=== PATIENT | male | born 2000 | race Caucasian/White ===

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

== ENCOUNTER 2020-07-01 07:54 | Observation (INO) | payer OTHER, MEDICAID ==
[~2020-07-01] VITALS: Ht 182.9 cm; Wt 70.8 kg
[~2020-07-01 07:54] MED LIST changes: +BUSPIRONE HCL10 MG PO; +DEPAKOTE125 MG PO; +HYDROXYZINE HCL25 M1 PO
[2020-07-01 08:00] VITALS: BP 112/55
[2020-07-01 08:19] LABS: ABSOLUTE LYMPHOCYTES 1.2 thou/uL (0.8-5.3); ABSOLUTE MONOCYTES 0.5 thou/uL (0.0-1.2); ABSOLUTE NEUTROPHILS 1.3 thou/uL (1.6-8.1); BASOPHILS 0.4 %; EOSINOPHILS 1.2 %; HEMATOCRIT 41.3 % (42.0-52.0); HEMOGLOBIN 13.8 gm/dL (14.0-18.0); LYMPHOCYTES 40.7 %; MCH 28.9 pg (26.0-34.0); MCHC 33.3 g/dL (28.0-37.0); MCV 86.7 fL (80.0-100.0); MONOCYTES 14.8 %; NUCLEATED RBCS 0 /100WBC; PLATELET COUNT* 156 thou/uL (150-400); POLYS 42.9 %; RBC 4.77 mil/uL (4.50-6.00); RDW-CV 13.5 % (10.5-14.5)
[2020-07-01 08:27] LABS: CALCIUM 8.8 mg/dL (8.5-10.1); CREATININE 0.6 mg/dL (0.6-1.3); POTASSIUM 3.4 mmol/L (3.5-5.1)
[2020-07-01 08:30] LABS: APTT 22.5 Seconds (25.0-31.3); INR 1.1; PROTIME 11.6 Seconds (9.20-11.50)
[2020-07-01 08:38] LABS: ALBUMIN 3.9 g/dL (3.4-5.0); TOTAL BILIRUBIN 0.5 mg/dL (<0.1-1.0); TOTAL PROTEIN 6.7 g/dL (6.4-8.2)
[2020-07-01] MEDS ORDERED: STRATTERA18 MG PO (09:08)
[2020-07-01] MEDS ORDERED: STRATTERA25 MG PO (09:08)
[2020-07-01] MEDS ORDERED: DEXEDRINE10 MG PO (09:09)
[2020-07-01] MEDS ORDERED: LOXAPINE5 MG PO (09:12)
[2020-07-01] MEDS ORDERED: TRAZODONE HCL50 MG PO (09:12)
[2020-07-01 09:34] LABS: URINE BILIRUBIN NEGATIVE (Negative); URINE BLOOD TRACE (Negative); URINE CLARITY CLEAR; URINE COLOR YELLOW; URINE GLUCOSE-RANDOM NEGATIVE (Negative); URINE KETONES NEGATIVE (Negative); URINE LEUKOCYTES-REFLEX NEGATIVE (Negative); URINE NITRITE-REFLEX NEGATIVE (Negative); URINE PROTEIN 1+ (Negative); URINE SPECIFIC GRAVITY >= 1.030 (1.005-1.030); URINE UROBILINOGEN 0.2 E.U./dl (0.2-1.0)
[2020-07-01 10:36] LABS: AMP/METHAMP POSITIVE (Negative); BARBITURATES Negative (Negative); BENZODIAZEPINES Negative (Negative); COCAINE Negative (Negative); METHADONE Negative (Negative); OPIATES Negative (Negative); PCP Negative (Negative); THC Negative (Negative)
--- NOTE | 2020-07-01 11:17 | 2DMMODE ---
[place] [address] 2 D/M-MODE ECHOCARDIOGRAM Name: DONALDO STONE [facility] [id number] Admission: 07/01/20 Attend Phys: Vega Bagley, Discharge: Date of : 00 Date of Service: 07/01/20 1116 Report #: [id number] THIS REPORT FOR: cc: GERONIMO DUMONT,GERONIMO Vences,Alex Hunter MD [facility] ~ APPROVED REPORT Study performed: 07/01/2020 10:29:44 EXAM: Comprehensive 2D, Doppler, and color-flow Echocardiogram Patient Location: In-Patient Room #: er Status: routine BSA: 1.73 HR: 108 bpm BP: 127/77 mmHg Other Information Technically limited study due to uncooperative patient. Indications AMS Left Ventricle The left ventricle is normal size. There is normal LV segmental wall motion. There is normal left ventricular wall thickness. Left ventricular systolic function is normal. The left ventricular ejection fraction is within the normal range. LVEF is 65-70%. Right Ventricle The right ventricle is normal size. The right ventricular systolic function is normal. Atria The left atrium size is normal. The interatrial septum is intact with no evidence for an atrial septal defect. The right atrium size is normal. Aortic Valve The aortic valve is normal in structure. No aortic regurgitation is present. There is no [place] [address] 2 D/M-MODE ECHOCARDIOGRAM Name: DONALDO STONE Room: [address] Favian#: [id number] Admission: 07/01/20 Attend Phys: Vega Bagley, Discharge: Date of : 00 Date of Service: 07/01/20 1116 Report #: [id number] Mitral Valve The mitral valve is normal in structure. There is no mitral valve regurgitation noted. No evidence of mitral valve stenosis. Tricuspid Valve The tricuspid valve is normal in structure. There is no tricuspid valve regurgitation noted. Pulmonic Valve The pulmonary valve is normal in structure. There is no pulmonic valvular regurgitation. Great Vessels The aortic root is normal in size. IVC is normal in size and collapses >50% with inspiration. Pericardium There is no pericardial effusion. <Conclusion> The left ventricle is normal size. There is normal left ventricular wall thickness. Left ventricular systolic function is normal. The left ventricular ejection fraction is within the normal range. LVEF is 65-70%. The right ventricle is normal size. The left atrium size is normal. The aortic valve is normal in structure. The mitral valve is normal in structure. The tricuspid valve is normal in structure. IVC is normal in size and collapses >50% with inspiration. There is no pericardial effusion. There is normal LV segmental wall motion. The interatrial septum is intact with no evidence for an atrial septal defect. <ELECTRONICALLY SIGNED> By: Alex Vences MD, FACC 07/01/20 1116 111 111 Alex Vences MD, FACC /INF
[2020-07-01 12:47] LABS: BE -0.8 mmol/L (-2 to +3); PCO2 40.1 mmHg (35.0-45.0); PO2 102.9 mmHg (75.0-100.0); pH 7.395 (7.340-7.450)
[2020-07-01 13:30] VITALS: BP 118/73
[2020-07-01 16:33] VITALS: BP 111/60
[2020-07-01 17:00] VITALS: BP 126/76
--- NOTE | 2020-07-01 18:19 | NUR ---
PT ADMITTED TO ROOM 230 VIA REPORT BY ALEXUS TUTTLE,PT BROUGHT TO ROOM BY ANCILLARY STAFF ACCOMPANIED BY MUSEUM HOST/HOSTESS.MUSEUM HOST/HOSTESS REPORTS PT HAD BEEN ON THE WAY TO SCHOOL WHEN HE LOST CONCIOUSNESS. PT TAKES MANY PSYCH MEDICATIONS AND LIVES IN PRISON WITH OTHERS. WAS DETERMINED ACCORDING TO DRAW PRESS OPERATOR BY COUNT THAT PT DID NOT TAKE ANY ONE ELSE'S MEDICATION.MUSEUM HOST/HOSTESS REPORTS THAT STAFF IS SUPPOSED TO REPLACE THEM PT DOES REQUIRE CONSTANT OBSERVATION AND IN ED DID BECOME IMPULSIVE AND AGITATED.TOOK 3 PEOPLE TO ACQUIRE LABS PER REPORT.FOUND THAT LONG I ASKED PT TO DO PROCEDURES AND DESCRIBED THEM HE WAS VERY PLEASANT AND COMPLIANT.DRAW PRESS OPERATOR REPORTS CONFUSION ABOUT ADMISSION AND PLAN OF CARE. WILL PAGE PHYSICIAN TO CALL DRAW PRESS OPERATOR FOR FURTHER EDUCATION. MUSEUM HOST/HOSTESS RELIEVED BY STAFF. PT RESTING COMFORTABLE.NOTHING FURTHER.CLWR
[2020-07-01 20:33] VITALS: BP 117/62
[2020-07-02 00:08] VITALS: BP 119/67
[2020-07-02 02:00] VITALS: BP 124/71
[2020-07-02 02:01] VITALS: BP 116/77
[2020-07-02 03:42] VITALS: BP 106/62
--- NOTE | 2020-07-02 05:47 | NUR ---
PT HAS SLEPT WELL OVERNIGHT. MORE DROWSY WHEN AWAKENED AT BEGINNING OF SHIFT,BUT HAS SEEMED MORE ALERT WHEN AWAKENING SHIFT HAS PROGRESSED. AO X4, DENIES PAIN. UP WITH SBA AND GB TO BATHROOM TO VOID OVERNIGHT. BLOOD TINGED PINK URINE-PT HAD STRAIGHT CATH IN ER. [facility] PERFORMED. TELE ST. ORTHOSTATIC BP ATTEMPTED BUT PT WOULD NOT COOPERATE WITH STANDING PORTION, CHARTED. ROOM AIR. SITTER AT BEDSIDE. PT HAS LABILE EMOTIONS, HAS BEEN MOSTLY PLEASANT AND COOPERATIVE BUT CAN BECOME AGITATED EASILY WITH CARES. EXTRA CARE AND TIME GIVEN TO EXPLAIN CARES AND PROCEDURES IN ORDER TO KEEP PT CALM. RFA SLIV. HR ELEVATED TO 140'S WITH AMBULATION TO BATHROOM, QUICKLY RETURNS TO BASELINE WITH REST. SITTER IN ROOM THIS SHIFT.BED ALARM ON FOR SAFETY. CALL LITE IN EASY REACH.
--- NOTE | 2020-07-02 07:10 | NUR ---
CHANGE OF SHIFT BEDSIDE REPORT GIVEN PATIENT SEEN AT BEDSIDE, IN BED ASLEEP ASSUMED PATIENT CARE
[2020-07-02 08:00] VITALS: BP 139/86
[2020-07-02 13:02] VITALS: BP 139/86
--- NOTE | 2020-07-02 14:10 | NUR ---
DISCHARGE BACK TO [facility] REMOVED PERSONAL BELONGINGS RETURNED DISCHARGE INFORMATION GIVEN AND COPIES GIVEN PATIENT TAKEN VIA WC GOOD CONDITION TO WAITING CAR
--- NOTE | 2020-07-04 10:30 | EKG ---
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 : 2000 Requested By: Stoney Segovia Order Number: [id number] MD: Blair Christina Measurements Intervals [place] Rate: 95 P: 77 FL: 133 QRS: 74 QRSD: 94 T: -13 QT: 344 QTc: 433 Interpretive Statements Sinus rhythm Borderline T abnormalities, inferior leads No previous ECG available for comparison Electronically Signed On 07-04-2020 10:30:28 CDT by Blair Christina [email or web address] <ELECTRONICALLY SIGNED> By: Blair Christina MD, [facility] 07/04/20 1030 0801 0801 Blair Christina MD, [facility] /EPI
[2020-07-04] MEDS ORDERED: CEPHALEXIN500 MG PO (19:43)
== END 2020-07-02 14:15 | disposition home or self-care (01) ==
LOC: M.ERS 07:54 → M.TBA-ER 09:29 → M.2W 16:47
PROVIDERS: Emergency Medicine Emergency Medical Services; ADMIT Internal Medicine; ATTEND Internal Medicine
DX: G92 Toxic encephalopathy (principal); Z20.822 Contact with and (suspected) exposure to COVID-19; T50.905A Adverse effect of unspecified drugs, medicaments and biological substances, initial encounter; E87.6 Hypokalemia; R55 Syncope and collapse; R41.82 Altered mental status, unspecified; F90.9 Attention-deficit hyperactivity disorder, unspecified type; F94.1 Reactive attachment disorder of childhood; Z79.899 Other long term (current) drug therapy; Y92.89 Other specified places as the place of occurrence of the external cause

== ENCOUNTER 2021-01-19 09:31 | Emergency (ER) | payer OTHER, MEDICAID ==
[~2021-01-19] VITALS: Ht 182.9 cm; Wt 72.6 kg
[~2021-01-19 09:31] MED LIST changes: +CEPHALEXIN500 MG PO; +DEXEDRINE10 MG PO; +LOXAPINE5 MG PO; +STRATTERA18 MG PO; +STRATTERA25 MG PO
[2021-01-19] MEDS ORDERED: HYDROXYZINE HCL25 M2 (10:01)
[2021-01-19 10:30] VITALS: BP 136/76
== END 2021-01-19 10:30 | disposition home or self-care (01) ==
LOC: M.ERS 09:31
DX: R04.0 Epistaxis (principal); F90.9 Attention-deficit hyperactivity disorder, unspecified type; Z79.899 Other long term (current) drug therapy